=== PATIENT | female | born 2000 | race Caucasian/White ===

== ENCOUNTER 2023-03-30 04:52 | Inpatient (IN) | payer MEDICAID ==
[~2023-03-30] VITALS: Ht 170.2 cm; Wt 154.3 kg
[2023-03-30] MEDS: IPRATROPIUM BROMIDE 0.5 MG/2.5 ML NEB SOLUTION NEB ONE ×2 (05:45→07:04)
[2023-03-30] MEDS: ALBUTEROL SULFATE 2.5 MG/0.5 ML NEB SOLUTION NEB ONE ×2 (05:45→07:04)
[2023-03-30 05:50] VITALS: PULSE 119; RESP 20; O2SAT 94
[2023-03-30] MEDS: ACETAMINOPHEN 500 MG TABLET PO ONE (06:11)
[2023-03-30 06:19] LABS: ANION GAP 5 mmol/L (8-16); CALCIUM, TOTAL 9.8 mg/dL (8.8-10.5); CARBON DIOXIDE 34 mmol/L (22-29); CHLORIDE 95 mmol/L (98-107); CREATININE 0.78 mg/dL (0.60-1.30); GLOMERULAR FILTR. RATE CALC > 60 mL/min (>60); GLUCOSE,RANDOM 397 mg/dL (70-110); POTASSIUM 4.7 mmol/L (3.5-5.1); SODIUM SERUM 134 mmol/L (136-145); UREA NITROGEN, BLOOD 10 mg/dL (7-18)
[2023-03-30 06:26] LABS: ALANINE AMINOTRANSFERASE 242 U/L (12-78); ALBUMIN 3.4 g/dL (3.4-5.0); ALKALINE PHOSPHATASE 118 U/L (46-116); ASPARTATE AMINOTRANSFERASE 158 U/L (15-37); BILIRUBIN,TOTAL 0.6 mg/dL (0.1-1.0); CREATINE KINASE, TOTAL ONLY 47 U/L (26-192); TOTAL PROTEIN, SERUM 7.8 g/dL (6.4-8.2)
[2023-03-30 06:28] LABS: TROPONIN I-HIGH SENSITIVITY 4 ng/L (<51)
[2023-03-30 06:33] LABS: INFLUENZA A-RTPCR,COMBO NEGATIVE (NEGATIVE); INFLUENZA B-RTPCR,COMBO NEGATIVE (NEGATIVE); RESPIRATORY SYNCYTIAL VRS-PCR NEGATIVE (NEGATIVE); SARS COVID19 RTPCR, COMBO NEGATIVE (NEGATIVE)
[2023-03-30 07:05] VITALS: PULSE 110; RESP 20; O2SAT 93
[2023-03-30] MEDS ORDERED: IOHEXOL 350 MG/ML 100 ML VIAL ONE ×2 (07:09)
[2023-03-30] MEDS ORDERED: SODIUM CHLORIDE 0.9% 100 ML ONE (07:09)
[2023-03-30 07:10] VITALS: PULSE 110; RESP 20; O2SAT 93
[2023-03-30 07:11] LABS: BASOPHILS % (AUTO) 0.9 % (0.0-2.0); EOSINOPHILS % (AUTO) 2.2 % (1.0-6.0); HEMATOCRIT 41.5 % (36-46); HEMOGLOBIN 14.6 g/dL (12.0-16.0); LYMPHOCYTES # (AUTO) 2.1 K/uL (1.0-4.8); LYMPHOCYTES % (AUTO) 22.3 % (22.0-44.0); MEAN CORPUSCULAR HGB CONC 35.1 G/dL (31.0-37.0); MEAN CORPUSCULAR VOLUME 86 fL (80-100); MONOCYTES # (AUTO) 0.5 K/uL (0.1-1.0); MONOCYTES % (AUTO) 5.7 % (2.0-9.0); NEUTROPHILS # (AUTO) 6.4 K/uL (1.8-7.7); NEUTROPHILS % (AUTO) 68.9 % (40.0-70.0); PLATELET COUNT (AUTO) 218 K/uL (150-450); RED BLOOD CELL COUNT(AUTO) 4.85 MIL/uL (4.00-5.20); RED CELL DISTRIBUTION WIDTH 14.9 % (11.5-14.5); WHITE BLOOD COUNT (AUTO) 9.2 K/uL (4.5-11.0)
[2023-03-30 07:41] LABS: B-TYPE NATRIURETIC PEPTIDE < 5 pg/mL (0-100)
[2023-03-30 08:13] LABS: LACTIC ACID 2.3 mmol/L (0.4-2.0)
[2023-03-30] MEDS: SODIUM CHLORIDE 0.9% 1,000 ML IV ONE (08:14)
[2023-03-30] MEDS: AZITHROMYCIN 250 MG in SODIUM CHLORIDE 0.9% 150 ML IV ONE (08:14)
[2023-03-30] MEDS: CefTRIAXone 1 GM/DEXTROSE 50 ML IV ONE (08:14)
[2023-03-30] MEDS: SODIUM CHLORIDE 0.9% IV ONE (08:52)
[2023-03-30 12:58] LABS: APPEARANCE,URINE CLEAR (CLEAR); BILIRUBIN,URINE NEGATIVE (NEGATIVE); COLOR,URINE LIGHT YELLOW (YELLOW); GLUCOSE, URINE (UA) >=1000 mg/dL (NEGATIVE); KETONES,URINE NEGATIVE (NEGATIVE); LEUKOCYTE ESTERASE ,URINE NEGATIVE (NEGATIVE); NITRATE,URINE NEGATIVE (NEGATIVE); OCCULT BLOOD,URINE NEGATIVE (NEGATIVE); PROTEIN,URINE 100-200,SEE CONFIRM mg/dL (NEGATIVE); UROBILINOGEN,URINE <=1.0 mg/dL (<=1.0)
[2023-03-30] MEDS ORDERED: ONDANSETRON HCL 4 MG/2 ML VIAL IVP PRN (13:00)
[2023-03-30] MEDS ORDERED: DEXTROSE 50%-WATER 25 GM/50 ML SYRINGE IVP PRN (13:00)
[2023-03-30] MEDS ORDERED: MAGNESIUM HYDROXIDE SUSPENSION 30 ML UDCUP PO PRN (13:00)
[2023-03-30] MEDS ORDERED: HYDROCODONE/ACETAMINOPHEN 5-325 MG TABLET PO PRN (13:00)
[2023-03-30] MEDS ORDERED: BISACODYL 10 MG RECTAL RECTAL SUPPOSITORY PR PRN (13:00)
[2023-03-30] MEDS ORDERED: MORPHINE SULFATE 2 MG/ML SYRINGE IVP PRN (13:00)
[2023-03-30 13:04] LABS: ALCOHOL, URINE DRUG SCREEN NEGATIVE (NEGATIVE); AMPHET/METH SCREEN,URINE NEGATIVE (NEGATIVE); BARBITURATE SCREEN, URINE NEGATIVE (NEGATIVE); BENZODIAZEPINES SCREEN,URINE NEGATIVE (NEGATIVE); CANNABINOID SCREEN,URINE NEGATIVE (NEGATIVE); COCAINE SCREEN,URINE NEGATIVE (NEGATIVE); METHADONE SCREEN, URINE NEGATIVE (NEGATIVE); OPIATE SCREEN,URINE NEGATIVE (NEGATIVE); PHENCYCLIDINE SCREEN,URINE NEGATIVE (NEGATIVE)
[2023-03-30 13:25] LABS: BACTERIA,URINE None Seen /HPF (None Seen); RBC,URINE None Seen /HPF (0-2); SQUAMOUS EPITHELIAL CELL,UR Few /LPF (None Seen); SULFOSALICYLIC ACID,URINE Trace (Negative); WBC,URINE None Seen /HPF (0-5)
[2023-03-30] MEDS: LEVOFLOXACIN 750 MG/D5% WATER 150 ML IV SCH (14:27)
[2023-03-30] MEDS: HEPARIN SODIUM,PORCINE 5,000 UNITS/ML VIAL SQ SCH (14:59)
[2023-03-30] MEDS: DiphenhydrAMINE HCL 50 MG/ML VIAL IVP ONE (14:59)
[2023-03-30] MEDS: INSULIN LISPRO 100 UNITS/ML SQ PRN (17:38)
[2023-03-30 17:41] LABS: GLUCOMETER DEV NAME(LOC) ERT.5; GLUCOSE,POINT OF CARE 297 MG/DL (70-110)
[2023-03-30 18:37] VITALS: BP 151/92; PULSE 107; RESP 19; TEMP 98.5
[2023-03-30 19:31] VITALS: BP 136/59; PULSE 95; RESP 19; TEMP 98
[2023-03-30] MEDS: DOCUSATE SODIUM 100 MG CAPSULE PO SCH (20:22)
[2023-03-30] MEDS: INSULIN GLARGINE,HUM.REC.ANLOG 100 UNITS/ML SQ SCH (20:29)
[2023-03-30] MEDS: BENZONATATE 100 MG CAPSULE PO PRN (21:37)
[2023-03-30] MEDS: ZOLPIDEM TARTRATE 5 MG TABLET PO PRN (23:01)
[2023-03-31] VITALS (7 sets, daily range): BP systolic 107–148; BP diastolic 64–86; PULSE 85–108; RESP 19–20; TEMP 97.3–98.7
[2023-03-31] MEDS: PANTOPRAZOLE SODIUM 40 MG DR TABLET PO SCH (08:14)
[2023-03-31 08:37] LABS: ANION GAP 8 mmol/L (8-16); CALCIUM, TOTAL 9.6 mg/dL (8.8-10.5); CARBON DIOXIDE 30 mmol/L (22-29); CHLORIDE 97 mmol/L (98-107); CREATININE 0.62 mg/dL (0.60-1.30); GLOMERULAR FILTR. RATE CALC > 60 mL/min (>60); GLUCOSE,RANDOM 332 mg/dL (70-110); POTASSIUM 4.5 mmol/L (3.5-5.1); SODIUM SERUM 135 mmol/L (136-145); UREA NITROGEN, BLOOD 6 mg/dL (7-18)
[2023-03-31 08:58] LABS: BASOPHILS % (AUTO) 0.8 % (0.0-2.0); EOSINOPHILS % (AUTO) 2.1 % (1.0-6.0); HEMOGLOBIN 13.9 g/dL (12.0-16.0); LYMPHOCYTES # (AUTO) 2.4 K/uL (1.0-4.8); LYMPHOCYTES % (AUTO) 23.9 % (22.0-44.0); MEAN CORPUSCULAR HEMOGLOBIN 26.9 pg (26.0-34.0); MEAN CORPUSCULAR HGB CONC 33.1 G/dL (31.0-37.0); MEAN CORPUSCULAR VOLUME 81 fL (80-100); MONOCYTES # (AUTO) 0.4 K/uL (0.1-1.0); MONOCYTES % (AUTO) 4.5 % (2.0-9.0); NEUTROPHILS # (AUTO) 6.8 K/uL (1.8-7.7); NEUTROPHILS % (AUTO) 68.7 % (40.0-70.0); PLATELET COUNT (AUTO) 244 K/uL (150-450); RED BLOOD CELL COUNT(AUTO) 5.16 MIL/uL (4.00-5.20); RED CELL DISTRIBUTION WIDTH 15.4 % (11.5-14.5); WHITE BLOOD COUNT (AUTO) 9.9 K/uL (4.5-11.0)
[2023-03-31] MEDS ORDERED: AZITHROMYCIN 500 MG/NS 250 ML IV ONE (09:00)
[2023-03-31] MEDS: CefTRIAXone 1 GM/DEXTROSE 50 ML IV ONE (11:05)
[2023-03-31 11:26] LABS: GLUCOMETER DEV NAME(LOC) 5N.2C; GLUCOSE,POINT OF CARE 314 MG/DL (70-110)
[2023-03-31] MEDS ORDERED: ALBUTEROL SULFATE HFA 90 MCG/PUFF 8 GM INHALER IH PRN (12:00)
[2023-03-31] MEDS: AZITHROMYCIN 500 MG/NS 250 ML IV SCH (12:15)
[2023-03-31] MEDS: BENZONATATE 100 MG CAPSULE PO SCH (15:52)
[2023-03-31 17:22] LABS: GLUCOMETER DEV NAME(LOC) 5N.1C; GLUCOSE,POINT OF CARE 308 MG/DL (70-110)
[2023-03-31 17:22] LABS: GLUCOMETER DEV NAME(LOC) 5N.2C; GLUCOSE,POINT OF CARE 279 MG/DL (70-110)
[2023-03-31 17:22] LABS: GLUCOMETER DEV NAME(LOC) 5N.1C; GLUCOSE,POINT OF CARE 370 MG/DL (70-110)
[2023-03-31 20:05] LABS: GLUCOMETER DEV NAME(LOC) 5S.2C; GLUCOSE,POINT OF CARE 306 MG/DL (70-110)
[2023-04-01] VITALS (8 sets, daily range): BP systolic 133–158; BP diastolic 66–94; PULSE 92–116; RESP 18–22; TEMP 97.8–98.2; O2SAT 93–100
[2023-04-01 01:36] LABS: GLUCOMETER DEV NAME(LOC) 5S.1B; GLUCOSE,POINT OF CARE 314 MG/DL (70-110)
[2023-04-01] MEDS: ACETAMINOPHEN 325 MG TABLET PO PRN (03:09)
[2023-04-01 07:21] LABS: ANION GAP 5 mmol/L (8-16); CALCIUM, TOTAL 9.6 mg/dL (8.8-10.5); CARBON DIOXIDE 34 mmol/L (22-29); CHLORIDE 98 mmol/L (98-107); GLOMERULAR FILTR. RATE CALC > 60 mL/min (>60); GLUCOSE,RANDOM 293 mg/dL (70-110); POTASSIUM 4.6 mmol/L (3.5-5.1); SODIUM SERUM 137 mmol/L (136-145); UREA NITROGEN, BLOOD 5 mg/dL (7-18)
[2023-04-01 09:06] LABS: BASOPHILS % (AUTO) 0.5 % (0.0-2.0); EOSINOPHILS % (AUTO) 2.1 % (1.0-6.0); HEMATOCRIT 40.3 % (36-46); HEMOGLOBIN 13.3 g/dL (12.0-16.0); LYMPHOCYTES # (AUTO) 1.7 K/uL (1.0-4.8); LYMPHOCYTES % (AUTO) 22.9 % (22.0-44.0); MEAN CORPUSCULAR HEMOGLOBIN 26.8 pg (26.0-34.0); MEAN CORPUSCULAR VOLUME 81 fL (80-100); MONOCYTES # (AUTO) 0.5 K/uL (0.1-1.0); MONOCYTES % (AUTO) 6.1 % (2.0-9.0); NEUTROPHILS # (AUTO) 5.2 K/uL (1.8-7.7); NEUTROPHILS % (AUTO) 68.4 % (40.0-70.0); PLATELET COUNT (AUTO) 201 K/uL (150-450); RED BLOOD CELL COUNT(AUTO) 4.96 MIL/uL (4.00-5.20); RED CELL DISTRIBUTION WIDTH 15.4 % (11.5-14.5); WHITE BLOOD COUNT (AUTO) 7.6 K/uL (4.5-11.0)
[2023-04-01] MEDS ORDERED: METF-1211 PO (11:39)
[2023-04-01] MEDS ORDERED: INSLAN SQ (11:39)
[2023-04-01] MEDS ORDERED: BENZ100C68 PO (11:39)
[2023-04-01] MEDS ORDERED: CODE10LI2 PO (11:39)
[2023-04-01] MEDS: BENZONATATE 100 MG CAPSULE PO SCH (12:18)
[2023-04-01 12:21] LABS: GLUCOMETER DEV NAME(LOC) 5S.2C; GLUCOSE,POINT OF CARE 289 MG/DL (70-110)
[2023-04-01 12:21] LABS: GLUCOMETER DEV NAME(LOC) 5N.2C; GLUCOSE,POINT OF CARE 320 MG/DL (70-110)
[2023-04-01] MEDS: GuaiFENesin/CODEINE [SUGAR FREE] 200-20MG/10 ML SYRUP UDCUP PO PRN (12:21)
[2023-04-01] MEDS: CefTRIAXone 1 GM/DEXTROSE 50 ML IV SCH (12:33)
[2023-04-01 13:00] LABS: GLUCOMETER DEV NAME(LOC) 5S.1B; GLUCOSE,POINT OF CARE 307 MG/DL (70-110)
[2023-04-01] MEDS: ALBUTEROL SULFATE 2.5 MG/0.5 ML NEB SOLUTION NEB PRN (15:50)
[2023-04-01] MEDS: IPRATROPIUM BROMIDE 0.5 MG/2.5 ML NEB SOLUTION NEB PRN (15:50)
[2023-04-01 18:16] LABS: GLUCOMETER DEV NAME(LOC) 5S.2C; GLUCOSE,POINT OF CARE 231 MG/DL (70-110)
[2023-04-02] VITALS (10 sets, daily range): BP systolic 127–157; BP diastolic 74–97; PULSE 93–115; RESP 18–20; TEMP 97.6–98.3; O2SAT 91–94
[2023-04-02 05:36] LABS: GLUCOMETER DEV NAME(LOC) 5S.2C; GLUCOSE,POINT OF CARE 315 MG/DL (70-110)
[2023-04-02 07:06] LABS: GLUCOMETER DEV NAME(LOC) 5N.2C; GLUCOSE,POINT OF CARE 347 MG/DL (70-110)
[2023-04-02 07:31] LABS: ANION GAP 8 mmol/L (8-16); CALCIUM, TOTAL 9.6 mg/dL (8.8-10.5); CARBON DIOXIDE 33 mmol/L (22-29); CHLORIDE 96 mmol/L (98-107); CREATININE 0.62 mg/dL (0.60-1.30); GLOMERULAR FILTR. RATE CALC > 60 mL/min (>60); GLUCOSE,RANDOM 282 mg/dL (70-110); POTASSIUM 4.3 mmol/L (3.5-5.1); SODIUM SERUM 137 mmol/L (136-145); UREA NITROGEN, BLOOD 7 mg/dL (7-18)
[2023-04-02 08:33] LABS: BASOPHILS % (AUTO) 0.9 % (0.0-2.0); HEMATOCRIT 41.5 % (36-46); HEMOGLOBIN 14.1 g/dL (12.0-16.0); LYMPHOCYTES # (AUTO) 2.1 K/uL (1.0-4.8); LYMPHOCYTES % (AUTO) 25.2 % (22.0-44.0); MEAN CORPUSCULAR HEMOGLOBIN 28.5 pg (26.0-34.0); MEAN CORPUSCULAR HGB CONC 33.9 G/dL (31.0-37.0); MEAN CORPUSCULAR VOLUME 84 fL (80-100); MONOCYTES # (AUTO) 0.5 K/uL (0.1-1.0); MONOCYTES % (AUTO) 5.8 % (2.0-9.0); NEUTROPHILS # (AUTO) 5.6 K/uL (1.8-7.7); NEUTROPHILS % (AUTO) 66.1 % (40.0-70.0); PLATELET COUNT (AUTO) 215 K/uL (150-450); RED BLOOD CELL COUNT(AUTO) 4.93 MIL/uL (4.00-5.20); RED CELL DISTRIBUTION WIDTH 15.2 % (11.5-14.5); WHITE BLOOD COUNT (AUTO) 8.4 K/uL (4.5-11.0)
[2023-04-02 12:36] LABS: GLUCOMETER DEV NAME(LOC) 5N.2C; GLUCOSE,POINT OF CARE 256 MG/DL (70-110)
[2023-04-02] MEDS: BENZONATATE 100 MG CAPSULE PO SCH (17:02)
[2023-04-02 17:26] LABS: GLUCOMETER DEV NAME(LOC) 5N.2C; GLUCOSE,POINT OF CARE 279 MG/DL (70-110)
[2023-04-02] MEDS: BUDESONIDE 0.5 MG/2 ML NEB SOLUTION NEB SCH (20:03)
[2023-04-02] MEDS: GuaiFENesin/D-METHORPHAN [SUGAR-FREE] 200-20MG/10 ML SYRUP UDCUP PO PRN (21:29)
[2023-04-02 22:16] LABS: GLUCOMETER DEV NAME(LOC) 5N.2C; GLUCOSE,POINT OF CARE 327 MG/DL (70-110)
[2023-04-03 06:09] VITALS: BP 148/94; PULSE 89; RESP 18; TEMP 97.8
[2023-04-03 07:51] LABS: GLUCOMETER DEV NAME(LOC) 5N.2C; GLUCOSE,POINT OF CARE 343 MG/DL (70-110)
[2023-04-03 08:19] VITALS: PULSE 90; RESP 18; O2SAT 96
[2023-04-03 08:34] VITALS: PULSE 95; RESP 18; O2SAT 99
[2023-04-03] MEDS ORDERED: GUAIFDM PO (10:11)
[2023-04-03] MEDS ORDERED: AMOX1TAB16 PO (10:11)
[2023-04-03] MEDS ORDERED: ALBU18HF7 IH (10:11)
[2023-04-03] MEDS ORDERED: FLUT1BLS10 IH (10:11)
[2023-04-03 10:18] VITALS: BP 142/94; PULSE 107; RESP 18; TEMP 97.8
[2023-04-03] MEDS ORDERED: PRED-554 PO (10:19)
[2023-04-03] MEDS ORDERED: BENZ-227 PO (10:19)
== END 2023-04-03 11:40 | disposition home or self-care (01) | DRG 720 ==
LOC: EMS 04:52 → AHU 09:31 → 5S 16:34
PROVIDERS: ADMIT Internal Medicine; ATTEND Internal Medicine
DX: A41.9 Sepsis, unspecified organism (principal); J96.01 Acute respiratory failure with hypoxia; J15.69 Pneumonia due to other Gram-negative bacteria; E66.2 Morbid (severe) obesity with alveolar hypoventilation; Z68.43 Body mass index [BMI] 50.0-59.9, adult; I10 Essential (primary) hypertension; Z20.822 Contact with and (suspected) exposure to COVID-19; E11.65 Type 2 diabetes mellitus with hyperglycemia; J45.909 Unspecified asthma, uncomplicated; L25.8 Unspecified contact dermatitis due to other agents; T36.8X5A Adverse effect of other systemic antibiotics, initial encounter; Y92.238 Other place in hospital as the place of occurrence of the external cause; Z82.49 Family history of ischemic heart disease and other diseases of the circulatory system; Z83.3 Family history of diabetes mellitus; Z87.891 Personal history of nicotine dependence
CPT/HCPCS: 0241U; 71045; 71275; 80048; 80053; 80307; 81001; 81002; 82550; 82962; 83036; 83605; 83880; 84484; 84703; 85025; 85379; 87040; 93005; 94640; 99285; J0456; J0696; J1200; J1644; J1815; J1956; J7030; J7050; Q9967; 36415-L1; 36415-TC; J7613

== ENCOUNTER 2023-10-24 09:37 | Emergency (ER) | payer MEDICAID ==
[~2023-10-24] VITALS: Ht 167.6 cm; Wt 145.4 kg
[~2023-10-24 09:37] MED LIST: ALBU18HF7 IH; AMOX-457 PO; BENZ-227 PO; BENZ100C68 PO; FLUT1BLS10 IH; GUAIFDM PO; INSLAN SQ; METF-1211 PO; PRED-554 PO
[2023-10-24 09:46] VITALS: TEMP 98.3
[2023-10-24] MEDS: IBUPROFEN 600 MG TABLET PO ONE (12:07)
[2023-10-24] MEDS: ACETAMINOPHEN 500 MG TABLET PO ONE (12:08)
[2023-10-24] MEDS ORDERED: AMOX-457 PO (12:12)
[2023-10-24] MEDS ORDERED: IBUP-1554 PO (12:12)
[2023-10-24] MEDS ORDERED: METF-1211 PO (12:12)
[2023-10-24] MEDS ORDERED: ACET-66 PO (12:12)
[2023-10-24 12:17] VITALS: BP 135/99; PULSE 120; RESP 20; O2SAT 97
[2023-10-24 19:41] LABS: GLUCOMETER DEV NAME(LOC) ER.7; GLUCOSE,POINT OF CARE 262 MG/DL (70-110)
== END 2023-10-24 12:35 | disposition home or self-care (01) ==
LOC: EMS 09:37
DX: K05.10 Chronic gingivitis, plaque induced (principal); E11.65 Type 2 diabetes mellitus with hyperglycemia; F41.9 Anxiety disorder, unspecified; I10 Essential (primary) hypertension; Z98.890 Other specified postprocedural states; Z88.8 Allergy status to other drugs, medicaments and biological substances
CPT/HCPCS: 82962; 99283

== ENCOUNTER 2023-12-13 22:14 | Emergency (ER) | payer MEDICAID ==
[~2023-12-13] VITALS: Ht 167.6 cm; Wt 149.1 kg
[~2023-12-13 22:14] MED LIST changes: +ACET-66 PO; +IBUP-1554 PO
[2023-12-13 22:23] VITALS: BP 161/84; PULSE 103; RESP 14; TEMP 98.4; O2SAT 98
[2023-12-14] MEDS: AMOX TR/POT CLAV 875 MG/125 MG TABLET PO ONE (00:02)
[2023-12-14] MEDS: IBUPROFEN 400 MG TABLET PO ONE (00:02)
[2023-12-14] MEDS: ACETAMINOPHEN 325 MG TABLET PO ONE (00:03)
[2023-12-14] MEDS ORDERED: AMOX-457 PO (00:05)
== END 2023-12-14 01:23 | disposition home or self-care (01) ==
LOC: EMS 22:14
DX: K02.9 Dental caries, unspecified (principal); K04.7 Periapical abscess without sinus; E11.9 Type 2 diabetes mellitus without complications; I10 Essential (primary) hypertension; Z88.1 Allergy status to other antibiotic agents; Z79.4 Long term (current) use of insulin; Z79.51 Long term (current) use of inhaled steroids; Z79.52 Long term (current) use of systemic steroids; Z79.84 Long term (current) use of oral hypoglycemic drugs
CPT/HCPCS: 82962; 99284; Z7502; Z7610